=== PATIENT | female | born 1975 | race Caucasian/White ===

== ENCOUNTER 2016-04-21 10:30 | Emergency (ER) | payer OTHER ==
[2016-04-21 11:06] LABS: BASOPHIL 0.9 % (0-2); EOSINOPHIL 2.2 % (0-5); HCT 40.8 % (37.0-47.0); HGB 14.1 g/dl (12.5-16.0); MCH 29.9 pg (25.0-31.0); MCHC 34.6 g/dL (32.0-36.0); MCV 86.6 fL (78.0-100.0); MONOCYTE 5.9 % (0-12); MPV 10.1 fL (6.0-9.5); PLT 266 K/uL (150-400); RBC 4.71 M/uL (4.20-5.40); RDW 12.5 % (11.5-14.0); WBC 6.8 K/uL (4.0-10.5)
[2016-04-21 11:13] LABS: ALBUMIN 3.9 g/dL (3.5-5.0); BILIRUBIN - TOTAL 0.2 mg/dL (0.1-1.0); CREATININE 0.7 mg/dL (0.5-1.0); GLOBULIN (CALCULATION) 2.6 g/dL (2.2-4.2); MAGNESIUM 1.84 mg/dL (1.40-2.10); POTASSIUM 4.2 mmol/L (3.5-5.1); TOTAL PROTEIN 6.5 g/dL (6.4-8.3)
[2016-04-21 11:20] LABS: MYOGLOBIN 26 ng/mL (26-65); PRO-BNP 20 pg/mL (0-125); TROPONIN T < 0.010 ng/mL
[2016-04-21 11:20] LABS: PTT 26.9 SECONDS (23.2-31.4)
[2016-04-21 11:21] LABS: INR 0.91 (0.9-1.2); PROTHROMBIN TIME 11.9 SECONDS (11.7-14.0)
[2016-04-21 12:29] LABS: BILIRUBIN NEGATIVE (NEGATIVE); BLOOD 1+ Ery/uL (NEGATIVE); CLARITY CLEAR (CLEAR); COLOR YELLOW (YELLOW); GLUCOSE (U) NORMAL (NORMAL); KETONE (U) NEGATIVE (NEGATIVE); LEUKOCYTES NEGATIVE Leu/uL (NEGATIVE); NITRITE NEGATIVE (NEGATIVE); PROTEIN NEGATIVE (NEGATIVE); UROBILINOGEN 0.2 mg/dL (0.2-1.0)
[2016-04-21 12:41] LABS: MUCOUS TRACE
[2016-04-21 13:13] LABS: AMORPHOUS URATES CRYSTALS TRACE; BACTERIA TRACE
== END 2016-04-21 13:02 | disposition home or self-care (01) ==
LOC: FER 10:30
PROVIDERS: Emergency Medicine
DX: M94.0 Chondrocostal junction syndrome [Tietze] (principal); K29.70 Gastritis, unspecified, without bleeding; J44.9 Chronic obstructive pulmonary disease, unspecified; Z87.891 Personal history of nicotine dependence; Z80.9 Family history of malignant neoplasm, unspecified
CPT/HCPCS: 36415; 71010; 80053; 81001; 82550; 82553; 83735; 83874; 83880; 84484; 85025; 85610; 85730; 87804; 87899; 93005